=== PATIENT | female | born 1970 | race Caucasian/White ===

== ENCOUNTER 2017-07-05 14:56 | Emergency (ER) | payer BC, OTHER ==
[~2017-07-05] VITALS: Ht 167.6 cm; Wt 56.7 kg
[~2017-07-05 14:56] MED LIST: PSEU120T83 PO
--- NOTE | 2017-07-05 15:47 | NUR ---
Pt c/o RUQ ABD pain x 3 days, sharp in nature. Pt denies CP, SOB, dizziness, n/v, no other complaints, no distress noted.
[2017-07-05 16:03] LABS: *BILIRUBIN,URIN NEGATIVE (NEGATIVE); *BLOOD, URINE 2+ (NEGATIVE); *CLARITY,URINE SLIGHTLY CLOUDY (CLEAR); *COLOR,URINE YELLOW (YELLOW); *KETONES,URINE NEGATIVE (NEGATIVE); *PROTEIN,URINE NEGATIVE (NEGATIVE); *UROBILINOGEN,URINE 0.2 E.U./dl (NORMAL); LEUKOCYTE ESTERASE ,URINE 1+ (NEGATIVE); NITRITE, URINE NEGATIVE (NEGATIVE); UGLUCOSE NEGATIVE (NEGATIVE)
[2017-07-05 16:06] LABS: *URINE HCG, QUAL NEGATIVE (NEGATIVE)
[2017-07-05 16:17] LABS: BACTERIA,URINE MANY /HPF (NONE SEEN); SQUAMOUS EPITHELIAL CELL,UR MANY /HPF (NONE SEEN)
--- NOTE | 2017-07-05 17:44 | NUR ---
Gave pt RX and d/c instructions, verbalized understanding.
== END 2017-07-05 17:51 | disposition home or self-care (01) ==
LOC: ER 14:57
DX: K57.92 Diverticulitis of intestine, part unspecified, without perforation or abscess without bleeding (principal); F17.210 Nicotine dependence, cigarettes, uncomplicated; Z79.899 Other long term (current) drug therapy
CPT/HCPCS: 74176; 76856; 81001; 84703; 99285; A4663

== ENCOUNTER 2017-11-04 05:53 | Emergency (ER) | payer BC ==
[~2017-11-04] VITALS: Ht 167.6 cm; Wt 55.3 kg
[2017-11-04 06:16] LABS: *BILIRUBIN,URIN NEGATIVE (NEGATIVE); *BLOOD, URINE 2+ (NEGATIVE); *CLARITY,URINE CLEAR (CLEAR); *COLOR,URINE YELLOW (YELLOW); *KETONES,URINE NEGATIVE (NEGATIVE); *PROTEIN,URINE NEGATIVE (NEGATIVE); *UROBILINOGEN,URINE 0.2 E.U./dl (NORMAL); LEUKOCYTE ESTERASE ,URINE NEGATIVE (NEGATIVE); NITRITE, URINE NEGATIVE (NEGATIVE); UGLUCOSE NEGATIVE (NEGATIVE)
[2017-11-04 06:19] LABS: *URINE HCG, QUAL NEGATIVE (NEGATIVE)
[2017-11-04 06:20] LABS: BACTERIA,URINE FEW /HPF (NONE SEEN); MUCUS,URINE FEW /LPF (0-FEW); RBC,URINE 20-50 /HPF (0-3); SQUAMOUS EPITHELIAL CELL,UR MODERATE /HPF (NONE SEEN); WBC,URINE 0-3 /HPF (0-3)
[2017-11-04 06:24] LABS: BASOPHILS % (AUTO) 0.3 % (0.0-2.0); EOSINOPHILS % (AUTO) 0.2 % (0.0-7.0); HEMATOCRIT 32.6 % (31.2-41.9); HEMOGLOBIN 11.2 g/dL (10.9-14.3); LYMPHOCYTES # (AUTO) 1.2 K/uL (20.0-40.0); LYMPHOCYTES % (AUTO) 14.3 % (20.5-51.5); MEAN CORPUSCULAR HEMOGLOBIN 30.3 uug (24.7-32.8); MEAN CORPUSCULAR HGB CONC 34 g/dL (32.3-35.6); MEAN CORPUSCULAR VOLUME 88.3 fL (75.5-95.3); MONOCYTES # (AUTO) 0.6 K/uL (2.0-10.0); MONOCYTES % (AUTO) 6.8 % (0.0-11.0); NEUTROPHILS # (AUTO) 6.7 K/uL (1.8-8.9); NEUTROPHILS % (AUTO) 78.4 % (38.5-71.5); PLATELET COUNT (AUTO) 286 K/uL (179-408); RED BLOOD CELL COUNT(AUTO) 3.69 MIL/uL (3.63-4.92); WHITE BLOOD COUNT (AUTO) 8.6 K/uL (3.8-11.8)
--- NOTE | 2017-11-04 06:35 | NUR ---
DR NÚÑEZ INTO EVAL PATIENT
[2017-11-04 06:39] LABS: BILIRUBIN,DIRECT 0.1 mg/dL (0.0-0.2); BILIRUBIN,TOTAL 0.6 mg/dL (0.2-1.0); CREATININE 0.6 mg/dL (0.6-1.3); TOTAL PROTEIN, SERUM 7.5 g/dL (6.4-8.2)
--- NOTE | 2017-11-04 06:50 | NUR ---
PATIENT OUT OF UNIT FOR CT SCAN
--- NOTE | 2017-11-04 06:59 | NUR ---
PATIENT BACK FROM CT SCAN WITH NO DISTRESS NOTED
--- NOTE | 2017-11-04 08:08 | NUR ---
Patient does not wish to proceed with US at this time, ERMD aware.
--- NOTE | 2017-11-04 08:09 | NUR ---
Patient discharged to home in stable conditon. Written and verbal after care instructions given. Patient verbalizes understanding of instructions.
== END 2017-11-04 08:11 | disposition home or self-care (01) ==
LOC: ER 05:56
DX: K57.92 Diverticulitis of intestine, part unspecified, without perforation or abscess without bleeding (principal); F17.210 Nicotine dependence, cigarettes, uncomplicated
CPT/HCPCS: 36415; 74176; 80048; 80076; 81001; 83690; 84703; 85025; 99285; A4663

== ENCOUNTER 2018-02-17 16:14 | Emergency (ER) | payer BC ==
[~2018-02-17] VITALS: Ht 167.6 cm; Wt 55.3 kg
[2018-02-17] MEDS ORDERED: IBUP800T54 PO (16:28)
[2018-02-17] MEDS ORDERED: ASPI-966 PO (16:28)
--- NOTE | 2018-02-17 18:35 | NUR ---
Patient discharged to home in stable conditon. Written and verbal after care instructions given. Patient verbalizes understanding of instructions.
[2018-02-17 18:36] VITALS: BP 109/71
== END 2018-02-17 18:37 | disposition home or self-care (01) ==
LOC: ER 16:15
DX: K57.92 Diverticulitis of intestine, part unspecified, without perforation or abscess without bleeding (principal); F17.200 Nicotine dependence, unspecified, uncomplicated
CPT/HCPCS: A4663

== ENCOUNTER 2018-07-21 09:31 | Emergency (ER) | payer BC ==
[~2018-07-21] VITALS: Ht 167.6 cm; Wt 54.4 kg
[~2018-07-21 09:31] MED LIST changes: +ASPI-966 PO; +IBUP800T54 PO; -PSEU120T83 PO
[2018-07-21] MEDS ORDERED: IV NORMAL SALINE 1000 ML BAG IV ONE (10:00)
[2018-07-21] MEDS ORDERED: SWABABLE VALVE TRANSFER SET EA MC ONE (10:03)
[2018-07-21] MEDS ORDERED: IOHEXOL 300MG/ML 100 ML INFUS..BTL ONE (10:03)
[2018-07-21] MEDS ORDERED: IV NORMAL SALINE 250 ML IV ONE (10:03)
[2018-07-21 10:11] LABS: BASOPHILS # (AUTO) 0.1 K/uL (0.0-8.0); BASOPHILS % (AUTO) 0.7 % (0.0-2.0); EOSINOPHILS % (AUTO) 0.3 % (0.0-7.0); HEMATOCRIT 32.2 % (31.2-41.9); HEMOGLOBIN 10.7 g/dL (10.9-14.3); LYMPHOCYTES # (AUTO) 1.3 K/uL (20.0-40.0); LYMPHOCYTES % (AUTO) 14.6 % (20.5-51.5); MEAN CORPUSCULAR HEMOGLOBIN 28.9 uug (24.7-32.8); MEAN CORPUSCULAR HGB CONC 33 g/dL (32.3-35.6); MEAN CORPUSCULAR VOLUME 86.6 fL (75.5-95.3); MONOCYTES # (AUTO) 0.5 K/uL (2.0-10.0); MONOCYTES % (AUTO) 6.1 % (0.0-11.0); NEUTROPHILS # (AUTO) 6.7 K/uL (1.8-8.9); NEUTROPHILS % (AUTO) 78.3 % (38.5-71.5); PLATELET COUNT (AUTO) 302 K/uL (179-408); RED BLOOD CELL COUNT(AUTO) 3.72 MIL/uL (3.63-4.92); WHITE BLOOD COUNT (AUTO) 8.6 K/uL (3.8-11.8)
[2018-07-21 10:13] LABS: *BILIRUBIN,URIN NEGATIVE (NEGATIVE); *BLOOD, URINE 2+ (NEGATIVE); *CLARITY,URINE CLEAR (CLEAR); *COLOR,URINE YELLOW (YELLOW); *KETONES,URINE NEGATIVE (NEGATIVE); *UROBILINOGEN,URINE 0.2 E.U./dl (NORMAL); LEUKOCYTE ESTERASE ,URINE NEGATIVE (NEGATIVE); NITRITE, URINE NEGATIVE (NEGATIVE); UGLUCOSE NEGATIVE (NEGATIVE)
[2018-07-21 10:15] LABS: BACTERIA,URINE FEW /HPF (NONE SEEN); SQUAMOUS EPITHELIAL CELL,UR MODERATE /HPF (NONE SEEN)
[2018-07-21 10:17] LABS: CARBON DIOXIDE 26 mmol/L (21-32); CHLORIDE 102 mmol/L (98-107); CREATININE 0.5 mg/dL (0.6-1.3); GLUCOSE 93 mg/dL (74-106); POTASSIUM 3.7 mmol/L (3.5-5.1); UREA NITROGEN, BLOOD 11 mg/dL (7-18)
[2018-07-21 10:26] LABS: ALANINE AMINOTRANSFERASE 24 U/L (14-59); ALKALINE PHOSPHATASE 83 U/L (50-136); ASPARTATE AMINOTRANSFERASE 14 U/L (15-37); BILIRUBIN,DIRECT 0.2 mg/dL (0.0-0.2); BILIRUBIN,TOTAL 0.5 mg/dL (0.2-1.0); LIPASE 134 U/L (73-393); TOTAL PROTEIN, SERUM 7.6 g/dL (6.4-8.2)
[2018-07-21 10:39] LABS: *URINE HCG, QUAL NEGATIVE (NEGATIVE)
[2018-07-21] MEDS ORDERED: METRONIDAZOLE 500 MG TABLET PO ONE (12:00)
[2018-07-21] MEDS ORDERED: CIPROFLOXACIN HCL 250 MG TABLET PO ONE (12:00)
[2018-07-21] MEDS ORDERED: CIPROFLOXACIN HCL 250 MG TABLET ONE (12:03)
[2018-07-21] MEDS ORDERED: METRONIDAZOLE 500 MG TABLET ONE (12:04)
--- NOTE | 2018-07-21 12:04 | NUR ---
Patient discharged to home in stable conditon. Written and verbal after care instructions given. Patient verbalizes understanding of instructions.pt pain to the tolerble level. refused pain med. pt with . copy of all the studies provided for pt to follow up
[2018-07-21 12:19] VITALS: BP 108/71
== END 2018-07-21 12:20 | disposition home or self-care (01) ==
LOC: ER 09:31
DX: K52.9 Noninfective gastroenteritis and colitis, unspecified (principal); K59.00 Constipation, unspecified; F17.200 Nicotine dependence, unspecified, uncomplicated; Z79.82 Long term (current) use of aspirin; Z79.1 Long term (current) use of non-steroidal anti-inflammatories (NSAID)
CPT/HCPCS: 36415; 74177; 80048; 80076; 81001; 83605; 83690; 84703; 85025; 99284; Q9967; A4663; J7030; J7050

== ENCOUNTER 2022-06-29 08:33 | Emergency (ER) | payer BC, OTHER ==
[~2022-06-29] VITALS: Ht 167.6 cm; Wt 59.0 kg
--- NOTE | 2022-06-29 09:02 | NUR ---
[email or web address], medical screening exam in progress
[2022-06-29] MEDS ORDERED: TETRACAINE HCL 0.5% OPHT DROP 2 ML BOTTLE ONE (09:14)
[2022-06-29] MEDS ORDERED: TETRACAINE HCL 0.5% OPHT DROP 2 ML BOTTLE OP ONE (09:15)
[2022-06-29] MEDS ORDERED: FLUORESCEIN SODIUM 1 MG STRIP ONE (09:39)
--- NOTE | 2022-06-29 10:20 | NUR ---
Patient requested to remove sylvia lens and to stop eye irrigation.
[2022-06-29] MEDS ORDERED: ERYT3.5O24 RIGHTEYE (10:24)
--- NOTE | 2022-06-29 10:30 | NUR ---
Patient discharged to home in stable condition. Written and verbal after care instructions given. Patient verbalizes understanding of instructions. Stressed follow up or return to ER for worsening s/s.
[2022-06-29 10:36] VITALS: BP 117/82
== END 2022-06-29 10:31 | disposition home or self-care (01) ==
LOC: ER 08:33
DX: H57.13 Ocular pain, bilateral (principal); F17.200 Nicotine dependence, unspecified, uncomplicated
CPT/HCPCS: 99283; J7040; A4663

== ENCOUNTER 2025-05-05 11:20 | Emergency (ER) | payer OTHER ==
[~2025-05-05] VITALS: Ht 165.1 cm; Wt 64.4 kg
[~2025-05-05 11:20] MED LIST changes: -ASPI-966 PO; +ASPI1TAB5 PO; +ERYT3.5O24 RIGHTEYE
[2025-05-05 11:23] VITALS: BP 164/74
[2025-05-05 11:59] VITALS: BP 164/74; O2SAT 96
== END 2025-05-05 11:59 | disposition home or self-care (01) ==
LOC: ER 11:32
DX: S60.222A Contusion of left hand, initial encounter (principal); W22.8XXA Striking against or struck by other objects, initial encounter; Y93.89 Activity, other specified; Y92.89 Other specified places as the place of occurrence of the external cause; Y99.9 Unspecified external cause status
CPT/HCPCS: A4606; A4663